=== PATIENT | male | born 1980 ===

== ENCOUNTER 2019-10-05 22:33 | Emergency (ER) | payer MEDICAID ==
[~2019-10-05] VITALS: Ht 175.3 cm; Wt 100.0 kg
[2019-10-05 23:36] LABS: BASOPHILS # (AUTO) 0.1 X10'3 (0-0.2); BASOPHILS % (AUTO) 0.8 % (0-1); EOSINOPHILS # (AUTO) 0.1 X10'3 (0-0.9); EOSINOPHILS % (AUTO) 0.5 % (0-6); HEMATOCRIT 37.8 % (42.0-52.0); HEMOGLOBIN 12.4 g/dl (14.0-17.9); LYMPHOCYTES # (AUTO) 2.6 X10'3 (1.1-4.8); LYMPHOCYTES % (AUTO) 22.7 % (21-51); MEAN CORPUSCULAR HEMOGLOBIN 29.7 PG (27.0-31.0); MEAN CORPUSCULAR HGB CONC 32.9 g/dL (33.0-36.5); MEAN CORPUSCULAR VOLUME 90.4 FL (78-98); MONOCYTES # (AUTO) 0.8 X10'3 (0-0.9); MONOCYTES % (AUTO) 7.1 % (2-12); NEUTROPHILS # (AUTO) 7.9 X10'3 (1.8-7.7); NEUTROPHILS % (AUTO) 68.9 % (42-75); PLATELET COUNT 292 X10'3 (140-440); RED BLOOD COUNT 4.18 X10'6 (4.70-6.10); RED CELL DISTRIBUTION WIDTH 14.1 % (11.5-14.5); WHITE BLOOD COUNT 11.5 X10'3 (4.5-11.0)
[2019-10-05 23:48] LABS: ALANINE AMINOTRANSFERASE 38 U/L (12-78); ALBUMIN 3.2 G/DL (3.4-5.0); ALBUMIN/GLOBULIN RATIO 0.8 (1.1-1.5); ALKALINE PHOSPHATASE 39 IU/L (46-116); ANION GAP 12 (8-16); ASPARTATE AMINO TRANSFERASE 20 U/L (10-37); BILIRUBIN,TOTAL 0.2 MG/DL (0.1-1.0); BLOOD UREA NITROGEN 16 MG/DL (7-18); BUN/CREATININE RATIO 13.1 (5.4-32.0); CALCIUM 8.3 MG/DL (8.5-10.1); CHLORIDE 105 MMOL/L (99-107); CREATININE 1.22 MG/DL (0.60-1.10); GLUCOSE 133 MG/DL (70-104); POTASSIUM 3.4 MMOL/L (3.5-5.1); SODIUM 141 MMOL/L (135-145); TOTAL CARBON DIOXIDE 24.3 MMOL/L (24-32); TOTAL PROTEIN 7.1 G/DL (6.4-8.2); eGFR 65 ML/MIN
[2019-10-05] MEDS ORDERED: LIDOcaine 1% W/epiNEPHrine 1:200,000 10ml vial IJ STA (23:52)
[2019-10-05] MEDS ORDERED: morphine 10mg/ml inj. IV ONE (23:55)
[2019-10-06] MEDS ORDERED: acetaminophen 325mg tablet PO ONE
[2019-10-06] MEDS ORDERED: ondansetron/PF 4mg/2ml inj IV ONE (01:00)
[2019-10-06] MEDS ORDERED: fentaNYL/PF 50MCG/1 ML 2ML syringe IV ONE (01:00)
[2019-10-06] MEDS ORDERED: ketamine 10mg/ml 20ml inj IV STA (01:21)
[2019-10-06] MEDS ORDERED: ketamine 50 mg/ml 10ml vial IV STA (01:25)
[2019-10-06 01:38] LABS: CLARITY,URINE CLEAR (Clear); COLOR,URINE YELLOW (Yellow); GLUCOSE, URINE NEGATIVE (Neg); KETONES,URINE NEGATIVE (Neg); LEUKOCYTE ESTERASE ,URINE NEGATIVE (Neg); NITRITES, URINE NEGATIVE (Neg); OCCULT BLOOD,URINE NEGATIVE (Neg); PROTEIN,URINE NEGATIVE (Neg); UROBILINOGEN,URINE 0.2 E.U/dL (0.2-1.0)
--- NOTE | 2019-10-06 01:43 | NUR ---
patient aox4 easy to arouse pain control with ketamine, dr. uribe at bedside aspirating right knee,
[2019-10-06 01:48] LABS: UA COLLECTION TYPE NON-SPECIFIED
[2019-10-06 01:51] LABS: C-REACTIVE PROTEIN 3.94 MG/DL (0.0-0.5)
[2019-10-06] MEDS ORDERED: CefTRIAXone/D5W-Rocephin 1gm 50 ML IV ONE (02:00)
[2019-10-06] MEDS ORDERED: HYDROmorphone 1 mg/ml syringe IV STA ×2 (04:10→04:11)
[2019-10-06 05:00] VITALS: BP 110/59
--- NOTE | 2019-10-06 05:18 | NUR ---
WENT TO PATIENT ROOM TO ANSWER CALL LIGHT . PT VERBALLY DEMANDS PAIN MEDICATION " THE DR DID THIS TO MY KNEE SHE DUG AROUND IN IT AND I TOLD HER NOT TO I AM SICK OF BEING HERE" REPLIED TO THE PATIENT THAT I WAS NOT THE PRIMARY RN AND THAT I WOULD NEED TO REVIEW HIS MEDICATION HX PRIOR TO REPLYING THAT I WILL GIVE MORE MEDICATION . EXPLAINED TO PATIENT HE WAS WAITING FOR THE ORTHOPEDIC MD TO ASSESS HE RIGHT KNEE . PT BECAME HOSTILE AND VERBALLY RUDE . USING PROFANITY AND HOSTILITY . PT STATED HE DIDNT NOT ME IN HIS ROOM . COUNTED THE PATIENTS RESP AT 18 WITH AN O2 SAT OF 95 % AND NOTIFIED PRIMARY MD AND NURSE OF THE PATIENTS BEHAVIOR .
[2019-10-06] MEDS ORDERED: HYDROmorphone 1 mg/ml syringe IV ONE ×2 (05:25→05:30)
--- NOTE | 2019-10-06 05:39 | NUR ---
PATIENT IN BED EYES CLOSED RR EVEN UNLABORED PAIN IS CURRENTLY CONTROLLED. WILL CONTINUE TO MONITOR
--- NOTE | 2019-10-06 05:42 | NUR ---
DR. BONNIE WALL DR. WAS CALLED BY , DR. NICOLE WILL BE COMING IN TO ASSESS PATIENT FOR POSSIBLE ADMISSION
--- NOTE | 2019-10-06 06:01 | NUR ---
DR. NICOLE AT BEDSIDE ASSESSING PATIENT WITH
[2019-10-06] MEDS ORDERED: DOXY100C43 PO (06:15)
[2019-10-06] MEDS ORDERED: CEPH500C5 PO (06:15)
[2019-10-06] MEDS ORDERED: VANCOmycin 1250MG/NS 250ml Bag 250 ML IV SCH (08:00)
== END 2019-10-06 06:45 | disposition home or self-care (01) ==
LOC: ER 22:34
DX: L03.115 Cellulitis of right lower limb (principal); A64 Unspecified sexually transmitted disease; R11.0 Nausea; R19.7 Diarrhea, unspecified; R06.02 Shortness of breath; R50.9 Fever, unspecified; Z20.828 Contact with and (suspected) exposure to other viral communicable diseases; F12.90 Cannabis use, unspecified, uncomplicated; Z98.890 Other specified postprocedural states; Z79.2 Long term (current) use of antibiotics
CPT/HCPCS: 20611; 36415; 71045; 73564; 80053; 81003; 83605; 84145; 85025; 85651; 86140; 87040; 87491; 87591; 87635; 96365; 96368; 96375; 96376; 99285; C9803; J0696; J1170; J2270; J2405; J3010; J3370; 10160